=== PATIENT | male | born 1970 | race Caucasian/White ===

== ENCOUNTER 2024-10-16 11:19 | Emergency (ER) | payer SELFPAY ==
[2024-10-16 11:21] VITALS: BP 154/100
[2024-10-16 11:58] VITALS: BMI 25.7
--- NOTE | 2024-10-16 12:15 | ED.GENMED ---
History of Present Illness
General
Chief Complaint: Musculo-Skeletal Complaint
Source: patient
Exam Limitations: none
Time Seen by Provider: 10/16/24 11:35
Nursing documentation reviewed up to this point in time: agreed with
History of Present Illness
History of Present Illness:
54-year-old male with history as noted presents to the ER for evaluation of a left index finger injury. Patient says he was lifting a heavy plastic bin at work yesterday. He says that it slipped out of his hand and he went to grab it and flex
index finger was forced into extension. Had some pain initially but tried to work through it but today woke up with some swelling and came to the ER to be evaluated. No other injuries or complaints.
Past History
Past History
ED Past Medical History: None
ED Past Surgical History: None
Review of Systems
Review of Systems
All Other Systems: ROS reviewed and negative except as documented in HPI and ROS
Musculoskeletal: Reports other (Finger injury)
Phy Exam
Physical Exam
Physical Exam:
General: Awake, alert; no acute distress
Head: Normocephalic, atraumatic
Eyes: Conjunctiva normal
Throat: Airway intact
Neck: Trachea midline
Lungs: Breathing comfortably no distress
Heart: Regular rate
Skin: no rash, no lacerations or abrasions noted in area of concern
Extremities: Patient has some minor swelling between index and thumb on the left hand, tenderness along the palmar portion of the index finger essentially along the flexor tendon with some puffiness/swelling; no redness, no bruising; he is able to
extend the finger against resistance but cannot flex against resistance; strong pulse in the left upper extremity
Scores
Heart Failure Risk
Heart Failure Risk Score: Not Applicable
Heart Score for Chest Pain Patients
STEMI patient?: Not applicable
Withdrawal Assessment of Alcohol
Withdrawal Assessment Completed?: Not applicable
Course
Orders/Labs/Results
Orders:
Orders
10/16/24 11:20
CR Hand - Left Min 3 Views Urgent
Comment:
Reason For Exam: injury
Vital Signs
Initial and Last Documented VS:
Initial Vital Signs
Temp Pulse Resp BP Pulse Ox
37.2 C 66 16 154/100 98
10/16/24 11:21 10/16/24 11:21 10/16/24 11:21 10/16/24 11:21 10/16/24 11:21
Last Documented Vital Signs
Temp Pulse Resp BP Pulse Ox
37.2 C 68 18 152/90 98
10/16/24 11:21 10/16/24 12:18 10/16/24 12:18 10/16/24 12:18 10/16/24 12:18
Procedures
Splinting/Sling Placement
Left Second Finger:
Procedure completed by: Heriberto Choudhury MD
Pre-splint extermity exam: neurovascular intact
Type of splint: aluminium finger
Splint material: aluminum-foam
Splint checked by provider?: Yes
Normal distal neurovascular exam?: Yes
Additional information:
finger splint in slight flexon at DIP and PIP joints
MDM/Problems Addressed
Differential Diagnosis Includes:
Flexor tendon injury, fracture, dislocation
MDM/Problems Addressed:
54-year-old male presents after finger injury at work as above. X-ray shows no fracture or dislocation. Suspect based on history and exam that he has a flexor tendon injury. Placed in splint as documented. Referred to hand surgery for outpatient
follow-up.
*Radiology
Radiology exam reviewed: preliminary read by ED provider (No acute fracture or dislocation on my independent review)
*Pulse Oximetry
Patient hypoxic: no
*Critical Care Note
Total Time (30-74mins, 75-104mins- exclusive of procedures): Not Applicable
Data Reviewed
Source: patient
ED Attending Note
-
Portions of this chart may have been created with voice recognition software.� Occasional wrong word or��sound alike� substitutions may have occurred due to the inherent limitations of voice recognition software.
Discharge Plan
Departure
Patient Disposition: Home (Routine Discharge)
Date of Disposition: 10/16/24
Time of Disposition: 12:06
Patient with high blood pressure during this ER visit?: Yes
Discharge Problem:
Injury of flexor tendon of left hand
Instructions: Common Finger Injuries ED
Prescriptions:
No Action
oxycodone-acetaminophen 5 MG/325 MG tablet
1 tab PO Q4HPRN PRN (Reason: severe pain) Qty: 12 0RF
Referrals:
Matias Holman MD [Active] - Call in 1-3 days for appt (Hand Surgeon--must call today for follow up within the next few days--no longer than a week)
Stand Alone Forms: Return to Work
Activity Restrictions/Additional Instructions:
Thank you for visiting the Emergency Department at [facility].
1. Please schedule a follow up appointment as directed. Call first thing tomorrow morning to make an appointment.
2. If indicated, please take your medications as instructed and indicated on discharge paperwork.
3. If any of your symptoms do not improve, or persist, or become more severe within 6-12 hours, please return to the emergency department for further care.
4. Please return to the emergency department if you develop a headache, neck pain/stiffness, fever greater than 100.4F, chest pain, shortness of breath, persistent nausea, vomiting, slurred speech, difficulty walking, numbness/tingling, weakness,
signs of infection or any other symptoms that are worrisome to you.
Please call [phone] if you have any questions.
Interventions
Interventions:
*Risk Screen - Suicide Last Done: 10/16/24 11:21
*General Assessment Last Done: 10/16/24 11:58
*Neglect/Abuse Screening Last Done: 10/16/24 11:21
*ED COVID-19 Vaccine History Last Done: 10/16/24 11:58
*Nursing Disposition Last Done: 10/16/24 12:18
ED-Musculoskeletal Assessment Last Done: 10/16/24 11:58
Discharge Date and Time
Discharge Date/Time: 10/16/24 12:28
Print Language: [id number]
[2024-10-16 12:18] VITALS: BP 152/90
== END 2024-10-16 12:28 | disposition home or self-care (01) ==
LOC: EMR 11:19
PROVIDERS: EMERGENCY PHYSICIAN Emergency Medicine; FAMILY PHYSICIAN Emergency Medicine
DX: S66.191A Other injury of flexor muscle, fascia and tendon of left index finger at wrist and hand level, initial encounter (principal); X50.0XXA Overexertion from strenuous movement or load, initial encounter; Y99.0 Civilian activity done for income or pay
CPT/HCPCS: 99283; 29130; 73130